=== PATIENT | male | born 1975 | race Caucasian/White ===

== ENCOUNTER 2024-10-15 16:22 | Inpatient (IN) | payer OTHER ==
[2024-10-15 17:26] VITALS: BMI 20.9
[2024-10-15] MEDS ORDERED: guaiFENesin 600 MG TABLET.ER (FP) PO PRN (17:47)
[2024-10-15] MEDS ORDERED: DICYCLOMINE HCL 10 MG CAPSULE PO PRN (17:47)
[2024-10-15] MEDS ORDERED: METHOCARBAMOL 500 MG TABLET PO PRN (17:47)
[2024-10-15] MEDS ORDERED: BENZONATATE 200 MG CAPSULE PO PRN (17:47)
[2024-10-15] MEDS ORDERED: LOPERAMIDE HCL 2 MG CAPSULE PO PRN (17:47)
[2024-10-15] MEDS ORDERED: IBUPROFEN 400 MG TABLET (FP) PO PRN (17:47)
[2024-10-15] MEDS ORDERED: ACETAMINOPHEN 325 MG TABLET (FP) PO PRN (17:47)
[2024-10-15] MEDS ORDERED: MAGNESIUM HYDROX 2400MG/30ML ORAL SUSPENSION 30 ML CUP PO PRN (17:47)
[2024-10-15] MEDS ORDERED: BISMUTH SUBSALICYLATE 524 MG/30 ML PO PRN (17:47)
[2024-10-15] MEDS ORDERED: NALOXONE (NARCAN) HCL 4 MG/0.1 ML SPRAY NS PRN (17:47)
[2024-10-15] MEDS ORDERED: MAG HYDROX/AL HYDROX/SIMETH 30 ML UNIT-DOSE CUP PO PRN (17:47)
[2024-10-15] MEDS ORDERED: POLYETHYLENE GLYCOL (HEALTHYLAX) 3350 17 GM PACKET PO PRN (17:47)
[2024-10-15] MEDS ORDERED: chlordiazePOXIDE HCL 25 MG CAPSULE PO PRN (17:47)
[2024-10-15] MEDS ORDERED: BENZOCAINE/MENTHOL (CHLORASEPTIC ) LOZENGE MM PRN (17:47)
[2024-10-15] MEDS ORDERED: IBUPROFEN 600 MG TABLET (FP) PO PRN (17:47)
[2024-10-15] MEDS ORDERED: NICOTINE POLACRILEX 2 MG GUM BUC PRN (17:47)
[2024-10-15] MEDS: NALTREXONE HCL 50 MG TABLET PO ONE (20:11)
[2024-10-15] MEDS ORDERED: chlordiazePOXIDE HCL 25 MG CAPSULE ONE (20:14)
[2024-10-15] MEDS: chlordiazePOXIDE HCL 25 MG CAPSULE PO SCH (20:18)
[2024-10-15] MEDS: THIAMINE 100 MG TABLET PO SCH (22:18)
[2024-10-15] MEDS: MIRTAZAPINE 15 MG TABLET (FP) PO SCH (22:18)
[2024-10-15] MEDS: MELATONIN 5 MG TABLETS PO SCH (22:18)
[2024-10-16] MEDS: NICOTINE 21 MG/24 HOURS TOPICAL PATCH TD SCH (09:23)
[2024-10-16] MEDS: NALTREXONE HCL 50 MG TABLET PO SCH (09:23)
[2024-10-16] MEDS: PRENATAL VITAMINS W/ FOLIC ACID TABLET (FP) PO SCH (09:23)
[2024-10-16 09:45] LABS: HEMATOCRIT 40.7 % (40.1-51.0); HEMOGLOBIN 13.8 g/dL (13.7-17.5); MCHC 33.9 g/dl (32.3-36.5); MEAN CELL VOLUME 98.5 fl (79.0-92.2); MEAN PLT VOLUME 10.4 fl (9.4-12.4); PLATELET COUNT # 149 x10^3/uL (163-337); RDW 13.5 % (12.1-15.9)
[2024-10-16 09:51] LABS: CHLORIDE 102 mmol/L (98-107); POTASSIUM 3.5 mmol/L (3.5-5.1); SODIUM 137 mmol/L (136-145)
[2024-10-16 09:59] LABS: ALBUMIN 3.3 g/dl (3.4-5.0); ANION GAP 9 mmol/L (4-13); BLOOD UREA NITROGEN 9.8 mg/dL (7-18); CALCIUM 8.9 mg/dL (8.5-10.1); CO2 27 mmol/L (21-32); GLUCOSE,RANDOM 215 mg/dL (74-106); SGOT/AST 88 U/L (15-37); SGPT/ALT 48 U/L (13-61)
[2024-10-16 10:01] LABS: BILIRUBIN,TOTAL 1.9 mg/dL (0.2-1); TOT PROT 6.3 g/dl (6.4-8.2)
[2024-10-16 10:02] LABS: ALK PHOS 104 U/L (45-117); CREATININE 0.9 mg/dL (0.55-1.3)
[2024-10-16] MEDS: ONDANSETRON *ODT* 4 MG TABLET SL PRN (13:51)
[2024-10-16] MEDS: hydrOXYzine PAMOATE 25 MG CAPSULE (FP) PO PRN (14:55)
[2024-10-17] MEDS: chlordiazePOXIDE HCL 25 MG CAPSULE PO SCH (05:41)
[2024-10-17 09:26] VITALS: RESP 18
[2024-10-17] MEDS ORDERED: NICOTINE 14 MG/24 HOURS TOPICAL PATCH TD SCH (10:30)
[2024-10-17] MEDS: chlordiazePOXIDE HCL 25 MG CAPSULE PO ONE (13:11)
[2024-10-17 17:14] VITALS: BP 113/89; PULSE 114; TEMP 97.3
[2024-10-18] MEDS ORDERED: chlordiazePOXIDE HCL 10 MG CAPSULE PO PRN
[2024-10-18] MEDS ORDERED: chlordiazePOXIDE HCL 10 MG CAPSULE PO SCH (05:00)
[2024-10-19] MEDS ORDERED: chlordiazePOXIDE HCL 10 MG CAPSULE PO SCH (05:00)
[2024-10-20] MEDS ORDERED: chlordiazePOXIDE HCL 10 MG CAPSULE PO ONE (05:00)
== END 2024-10-17 18:18 | disposition home or self-care (01) | DRG 775 ==
LOC: YASAS 16:22 → Y6N 19:56
PROVIDERS: ADMIT Allergy & Immunology; ATTEND Allergy & Immunology
PROC: HZ2ZZZZ Detoxification Services for Substance Abuse Treatment (ICD-10-PCS; principal; 2024-10-15)
DX: F10.230 Alcohol dependence with withdrawal, uncomplicated (principal); F12.20 Cannabis dependence, uncomplicated; F17.210 Nicotine dependence, cigarettes, uncomplicated; F19.282 Other psychoactive substance dependence with psychoactive substance-induced sleep disorder; F41.9 Anxiety disorder, unspecified; R63.6 Underweight; Z68.21 Body mass index [BMI] 21.0-21.9, adult; R73.9 Hyperglycemia, unspecified; R79.89 Other specified abnormal findings of blood chemistry
CPT/HCPCS: 36415; 80053; 80305; 80307; 85027; 86780; 93005; 93010; Q0162